=== PATIENT | male | born 1975 | race Hispanic/Latino ===

== ENCOUNTER 2020-10-08 16:26 | Outpatient (CLI) | payer BC, SELFPAY ==
--- NOTE | ~2020-10-08 | CT_ITS ---
EXAMINATION: CT brain wo/w con DATE: 10/08/2020 17:30 INDICATION: Headache. TECHNIQUE: Computed tomography (CT) of the head was performed without and with 100 mL Omnipaque 350 i ntravenous contrast. The mA was adjusted according to patient size. Iterative reconstruction techniqu e was employed. The dose-length product was 1362.00 mGy-cm. COMPARISON: None FINDINGS: There is no intracranial hemorrhage, acute infarction, or abnormal intracranial mass lesion . The ventricles are normal in size. The paranasal sinuses are clear. The orbits are normal. The mast oid air cells are normal. IMPRESSION: 1. Normal brain. Reviewed, dictated and finalized at location A. SAGE JUDGE IMPRESSION: 1. Normal brain.
[2020-10-08 17:17] LABS: Estimated Glomerular Filt Rate > 60
== END 2020-10-08 16:27 | disposition home or self-care (01) ==
PROVIDERS: PCP Internal Medicine; Visit Provider Internal Medicine
DX: R51.9 Headache, unspecified (principal)
CPT/HCPCS: 70470; Q9967

== ENCOUNTER 2020-11-09 08:07 | Emergency (ER) | payer BC, SELFPAY ==
--- NOTE | ~2020-11-09 | CT_ITS ---
EXAMINATION: CT soft tissue neck w con EXAM DATE: 11/09/2020 09:54 INDICATION: Epiglottitis. TECHNIQUE: Spiral CT of the neck was performed following intravenous injection of 75 mL Omnipaque 350 . Axial, coronal and sagittal images were reviewed. The dose-length product (DLP) for this examinat ion was 531.94 mGy-cm. The exposure was tailored according to patient size (auto mA exposure control ), and iterative reconstruction (ASIR) was used as additional dose reduction technique. Correlation i s made to plain film x-ray same date. FINDINGS: The epiglottis is normal in thickness, however the aryepiglottic folds are edematous, with some effacement of the piriform sinuses suspected. This is causing some narrowing of the airway. Sev eral mildly enlarged internal jugular chain lymph nodes, largest measuring about 1.3 x 1.2 cm, likely reactive. The thyroid gland is unremarkable. The submandibular and parotid glands are symmetric. The superi or mediastinum is unremarkable. Parapharyngeal and pre-glottic fat planes are preserved. The opac ified vasculature is patent. Visualized sinuses and mastoid air cells are well aerated. Lung apic es are clear. There is mild cervical spondylosis. IMPRESSION: 1. Edematous bilateral aryepiglottic folds causing some airway narrowing and piriform sinus effaceme nt. Normal epiglottis thickness. 2. Mild internal jugular chain lymphadenopathy likely reactive. 3. No abscess. Reviewed, dictated and finalized at location A. IMPRESSION: 1. Edematous bilateral aryepiglottic folds causing some airway narrowing and p iriform sinus effacement. Normal epiglottis thickness. 2. Mild internal jugular chain lymphadenopathy likely reactive. 3. No abscess.
--- NOTE | ~2020-11-09 | XR_ITS ---
EXAMINATION: XR soft tissue neck DATE: 11/09/2020 09:08 INDICATION: Sore throat. TECHNIQUE: 2 views of the neck soft tissues were obtained. COMPARISON: None. FINDINGS: The adenoids, palatine tonsils, prevertebral soft tissues, and airway are normal. There is apparent thickening of the epiglottis. There is no radiopaque foreign body. IMPRESSION: 1. Apparent thickening of the epiglottis suspicious for inflammation. Consider neck CT with contrast. Reviewed, dictated and finalized at location A.
[2020-11-09 08:57] VITALS: BP 141/80; PULSE 87; RESP 17; TEMP 36.9; O2SAT 96
[2020-11-09 09:40] VITALS: PULSE 88; RESP 21; O2SAT 100
[2020-11-09 09:49] LABS: Basophils Percent Auto 0.3 % (0.2-1.2); Eosinophils Percent Auto 0.3 % (0-4.4); Hematocrit 40.3 % (42.0-52.0); Hemoglobin 12.2 g/dL (14.0-18.0); Immature Granulocyte Absolute 0.07 K/mm3 (0.00-0.031); Immature Granulocyte Percent A 0.5 % (0-0.5); Lymphocytes Absolute Auto 1.01 K/mm3 (0.9-3.2); Lymphocytes Percent Auto 7.4 % (18.3-44.2); Mean Corpuscular HGB Conc 30.3 g/dl (32-36); Mean Corpuscular Hemoglobin 24.4 pg (26-34); Mean Corpuscular Volume 80.4 fl (80-100); Mean Platelet Volume 9.7 fl (7.4-10.4); Monocytes Absolute Auto 1.5 K/mm3 (0.1-0.6); Monocytes Percent Auto 11.2 % (2.6-8.5); Neutrophils Percent Auto 80.3 % (45.5-73.1); Platelet Count Result 164 k/mm3 (150-375); Red Blood Count 5.01 M/mm3 (4.6-6.20); Red Cell Distribution Width 20.9 % (11.5-14.5); White Blood Count 13.7 K/mm3 (4.5-10.0)
[2020-11-09 09:52] LABS: Estimated CRCL calculation 94 ml/min; Estimated Glomerular Filt Rate > 60
[2020-11-09 10:00] LABS: Anion Gap 8 mmol/L (8-16); Blood Urea Nitrogen 14 mg/dL (9-20); Calcium 8.8 mg/dL (8.4-10.2); Carbon Dioxide 28 mmol/L (22-30); Chloride 100 mmol/L (98-107); Estimated CRCL calculation 94 ml/min; Estimated Glomerular Filt Rate > 60; Glucose 134 mg/dL (75-110); Potassium 4.6 mmol/L (3.4-5.0); Sodium 136 mmol/L (137-145)
--- NOTE | 2020-11-09 10:00 | ED.GENADULT ---
HPI - General Adult General Chief complaint: Unspecified Stated complaint: sore throat Time Seen by Provider: 11/09/20 08:46 History of Present Illness HPI narrative: Patient is a 45-year-old male who presents to the ER after referral from his PCP. Patient has had sore throat for the last day with fever and some discomfort swallowing. Pain is on the right side of his neck and throat. No alleviating factors. He is able to swallow his own secretions and fluids. There is no stridor or exertional shortness of breath. Reports he is up-to-date on his immunizations. Related Data Home Medications Medication Instructions Recorded Confirmed fluticasone propionate 50 1 spray NASAL BID 08/15/19 10/23/20 mcg/actuation nasal spray,suspension spironolactone 25 mg tablet 25 mg PO DAILY 08/15/19 10/23/20 Allergies Allergy/AdvReac Type Severity Reaction Status Date / Time No Known Allergies Allergy Verified 11/09/20 09:00 Review of Systems Review of Systems: All systems reviewed & are unremarkable except as noted in HPI and below Constitutional: Constitutional: Denies chills and Reports fever(s) ENT: Denies nasal congestion, Reports sore throat and Reports throat swelling Comments: Pain with swallowing Respiratory: Respiratory: Reports pain with cough, Denies dyspnea and Denies stridor PMFSH Past Medical History Medical History (Updated 11/09/20 @ 12:36 by Rubén Bauer MD) Anxiety with depression ASHD (arteriosclerotic heart disease) Benign essential hypertension Body mass index (BMI) 40.0-44.9, adult Chronic low back pain Chronic pain Colon cancer screening CTS (carpal tunnel syndrome) DM type 2 (diabetes mellitus, type 2) Encounter for routine adult health examination without abnormal findings History of GI bleed Hx of Finney's palsy Hx of chest pain Hyperlipidemia Hypogonadism male Joint pain Microcytosis Migraine headache On [facility] drug therapy Paresthesia of skin Sore throat Trigger finger of right hand Worsening headaches Family History Family History Father Family history of diabetes mellitus in first degree relative Family history of heart disease in male family member before age 55 Diabetes mellitus Family history of cardiovascular disease Social History Social History Smoking status: Never smoker Alcohol intake: never Gender identity (if verbalized by the patient): Male Exam Narrative: Exam Narrative: GENERAL: Well-appearing, obese, and in no acute distress. HEAD: Normocephalic, atraumatic. ENT: Mucous membranes moist. Exudate/ulceration soft palate and posteriorly. Tonsils normal in size. Uvula midline nonedematous CHEST: Clear to auscultation. No respiratory distress. HEART: Regular rate and rhythm. Normal peripheral pulses. EXTREMITIES: Normal range of motion. No edema. SKIN: Warm, dry, no rash. NEURO: Alert and oriented x3. PSYCH: Normal mood and affect. Course Reevaluation(s) Reevaluation #1: Discussed with Dr. Johnson. Will come to the ER to scope the patient. Recommends IV steroids and antibiotics. Date: 11/09/20 Time: 10:16 Reevaluation #2: Patient's voice sounds improved and he feels like his discomfort is decreasing after steroids and antibiotics. He has been scoped by ENT at bedside. They feel patient is stable for discharge home with Medrol Dosepak and Augmentin. Patient comfortable with treatment plan. Date: 11/09/20 Time: 12:34 Vital Signs Vital signs: Vital Signs Temperature 98.5 F 11/09/20 08:57 Pulse Rate 87 11/09/20 08:57 Respiratory Rate 17 11/09/20 08:57 Blood Pressure 141/80 H 11/09/20 08:57 Pulse Oximetry 96 11/09/20 08:57 Temperature 98.5 F 11/09/20 08:57 Pulse Rate 84 11/09/20 11:44 Respiratory Rate 18 11/09/20 11:44 Blood Pressure 123/68 11/09/20 11:44 Pulse Oximetry 93 11/09/20 11:44
[2020-11-09] MEDS: DEXAMETHASONE SOD PHOS INJ 4 MG/ML VIAL 10 MG IV PUSH (10:24)
[2020-11-09] MEDS: AMPICILLIN SULB 3 GM/NS 100 ML 3 GM/100 ML VIAL IVPB (10:24)
[2020-11-09 10:26] VITALS: BP 130/69; PULSE 89; RESP 24; O2SAT 97
[2020-11-09 11:44] VITALS: BP 123/68; PULSE 84; RESP 18; O2SAT 93
--- NOTE | 2020-11-09 12:33 | PC.NURSE ---
ENT here for pt eval, at bedside.
[2020-11-09] MEDS: LIDOCAINE HCL 2% VISC SOLN 15 ML UDC (12:49)
[2020-11-09 12:50] VITALS: BP 113/87; PULSE 82; RESP 18; O2SAT 98
--- NOTE | 2020-11-09 12:56 | WPDPROCEDUR ---
Procedures Laryngoscopy Laryngoscopy Comments: topical Afrin and lidocaine applied to the bilateral nasal passages. The risks benefits and indications for this procedure were discussed in great detail. The patient was positioned correctly. A 3.4 mm flexible scope was passed on the right side. The nasopharynx and nasal passages looked normal. The tonsillar is had mild exudate of plaques on them. The pharyngeal examination was also significant for these plaques albeit less than the tonsils and less than the hypopharyngeal examination which had purulence emanating from its aguilar. The epiglottis was somewhat edematous albeit mild. There was scant mucoid purulence throughout the hypopharyngeal and supraglottic examination the cords themselves appeared normal and demonstrated full and symmetric movement. Overall the pharyngeal examination was significant for of a narrowed pharyngeal examination most likely from the base of tongue as well as concentric narrowing from the pharyngeal musculature and soft tissue of the neck. This narrowing appears anatomic and not necessarily due to but somewhat worsened by the infectious process.
--- NOTE | 2020-11-09 12:58 | WPDCN ---
Assessment and Plan Assessment and plan (1) Pharyngitis: Code(s): J02.9 - Acute pharyngitis, unspecified Status: Acute Assessment and Plan: the patient overall is feeling improved following a dose of antibiotics and steroids. Given how well informed the patient is in his improvement symptoms I am comfortable saying he is okay to send home. I have asked the patient to follow up with me next week with any and all symptoms as well as a discussion of sleep apnea should he desire. The patient understands that this infection could get worse acutely or in a couple days as the steroid slowly wear off. I have asked the emergency room to send him home on a steroid taper or Medrol Dosepak as well as a 10 day course of antibiotics. The patient any are voiced understanding of the aforementioned plan. HPI Data of Consult Date/Time: 11/09/20 12:58 Primary Care Provider: Tanner Nettles MD Consult Narrative Narrative: Be Branch Jr. is a 45 year old male Who presents with several days of sore throat hoarse voice and difficulty swallowing which has been worsening since Monday. Today is Monday. The patient has not been treated. Presented to his PCP who a steeply diagnosed him with a pharyngitis or possible throat infection and sent him to the emergency room. In the emergency room white count elevated to [address] demonstrates soft tissue thickening in the neck but no discrete abscess formation. The patient also has a right-sided jugulodigastric lymph node which was enlarged again most likely reactive. I was consulted for evaluation of the airway given its narrowing on CT scan as well as the patient has mild difficulty breathing and mild hoarse voice. The patient has received a dose of Decadron as well as antibiotics. He reports improvement on all of the aforementioned symptoms. Of note the patient does have diabetes but this is relatively well controlled on his metformin. The patient does have sleep apnea but does not have issues with recurrent tonsillitis or infections. Review of Systems Review of Systems: All systems reviewed & are unremarkable except as noted in HPI and below PMFSH Past Medical History Medical History (Updated 11/09/20 @ 12:36 by Rubén Bauer MD) Anxiety with depression ASHD (arteriosclerotic heart disease) Benign essential hypertension Body mass index (BMI) 40.0-44.9, adult Chronic low back pain Chronic pain Colon cancer screening CTS (carpal tunnel syndrome) DM type 2 (diabetes mellitus, type 2) Encounter for routine adult health examination without abnormal findings History of GI bleed Hx of Finney's palsy Hx of chest pain Hyperlipidemia Hypogonadism male Joint pain Microcytosis Migraine headache On skilled nursing drug therapy Paresthesia of skin Sore throat Trigger finger of right hand Worsening headaches Family History Family History Father Family history of diabetes mellitus in first degree relative Family history of heart disease in male family member before age 55 Diabetes mellitus Family history of cardiovascular disease Social History Social History Smoking status: Never smoker Alcohol intake: never Gender identity (if verbalized by the patient): Male Meds Home Medications and Allergies Home Medications Medication Instructions Recorded Confirmed Type fluticasone propionate 50 1 spray NASAL BID 08/15/19 10/23/20 History mcg/actuation nasal spray,suspension spironolactone 25 mg tablet 25 mg PO DAILY 08/15/19 10/23/20 History esomeprazole magnesium 40 mg 40 mg PO BID #180 cap 01/07/20 10/23/20 Rx capsule,delayed release olmesartan 40 mg tablet 40 mg PO DAILY #90 tablet 01/07/20 10/23/20 Rx amlodipine 10 mg tablet 10 mg PO DAILY #90 tablet 02/03/20 10/23/20 Rx empagliflozin 10 mg tablet 10 mg PO DAILY #90 tablet 02/03/20
== END 2020-11-09 12:51 | disposition home or self-care (01) ==
PROVIDERS: Emergency Provider Emergency Medicine; PCP Internal Medicine
DX: J02.9 Acute pharyngitis, unspecified (principal); I25.10 Atherosclerotic heart disease of native coronary artery without angina pectoris; I10 Essential (primary) hypertension; E11.9 Type 2 diabetes mellitus without complications; E78.5 Hyperlipidemia, unspecified; Z79.84 Long term (current) use of oral hypoglycemic drugs
CPT/HCPCS: 31575; 36415; 70360; 70491; 80048; 85025; 87081; 87880; 96365; 96375; 99284; J0295; J1100; Q9967